=== PATIENT | male | born 1940 | race Caucasian/White ===

== ENCOUNTER 2022-01-21 10:57 | Inpatient (IN) ==
[2022-01-21] MEDS ORDERED: ALBUTEROL 2.5 MG/3 ML NEB RESP TX STA (11:31)
[2022-01-21] MEDS ORDERED: FUROSEMIDE 100 MG/10 ML VIAL IV STA (12:17)
[2022-01-21] MEDS ORDERED: AZITHROMYCIN INJ 500 MG in SODIUM CHLORIDE 0.9% 250 ML IV STA (12:17)
[2022-01-21] MEDS ORDERED: cefTRIAXone 1,000 MG in SODIUM CHLORIDE 0.9% 100 ML IV STA (12:17)
[2022-01-21] MEDS ORDERED: MORPHINE 2 MG/1 ML SYRINGE IV STA (12:18)
[2022-01-21] MEDS ORDERED: ASPIRIN 325 MG TABLET PO STA (12:29)
[2022-01-21] MEDS ORDERED: NITROGLYCERIN SL 0.4 MG TABLET SL ONE (12:35)
[2022-01-21] MEDS ORDERED: HEPARIN 5,000 UNIT/1 ML VIAL ONE (12:43)
[2022-01-21] MEDS ORDERED: HEPARIN 5,000 UNIT/1 ML VIAL IV STA (12:44)
[2022-01-21] MEDS ORDERED: HEPARIN/NACL 0.9% 2 UNITS/ML 2,000 UNIT/1,000 ML BAG IV ONE (12:50)
[2022-01-21] MEDS ORDERED: DOCUSATE SODIUM 100 MG CAPSULE PO PRN (12:57)
[2022-01-21] MEDS ORDERED: MORPHINE 2 MG/1 ML SYRINGE IV PRN (12:57)
[2022-01-21] MEDS ORDERED: diphenhydrAMINE CAP 25 MG CAPSULE PO PRN (12:57)
[2022-01-21] MEDS ORDERED: MAGNESIUM SULF RIDER 4 GM/100 ML PREMIX IV PRN (12:57)
[2022-01-21] MEDS ORDERED: MAGNESIUM SULF RIDER 2 GM/50 ML PREMIX IV PRN (12:57)
[2022-01-21] MEDS ORDERED: guaiFENesin/DM ER 600-30 MG TABLET PO PRN (12:57)
[2022-01-21] MEDS ORDERED: PROMETHAZINE 25 MG TABLET PO PRN (12:57)
[2022-01-21] MEDS ORDERED: ALUMINUM/MAGNES/SIMETH MAX STR 30 ML UDCUP PO PRN (12:57)
[2022-01-21] MEDS ORDERED: ACETAMINOPHEN 325 MG TABLET PO PRN (12:57)
[2022-01-21] MEDS ORDERED: hydrALAZINE 20 MG/1 ML VIAL IV PRN (12:57)
[2022-01-21] MEDS ORDERED: ONDANSETRON 4 MG/2 ML VIAL IV PRN (12:57)
[2022-01-21] MEDS ORDERED: MIDAZOLAM 2 MG/2 ML VIAL ONE (13:01)
[2022-01-21] MEDS ORDERED: fentaNYL 100 MCG/2 ML VIAL ONE (13:01)
[2022-01-21 13:04] LABS: Eosinophils % 0.1 % (0.00-10.9); Hematocrit 21.2 VOL% (42.0-52.0); Immature Granulocytes % 1.3 %; Immature Granulocytes Absolute 0.18 #; Lymphocytes # 0.7 10*3/uL (1.4-4.0); Lymphocytes % 4.7 % (21.2-54.2); Mean Corpuscular Volume 83.8 FL (87-102); Monocytes # 0.6 10*3/uL (0.11-0.8); Monocytes % 4.2 % (1.7-12.7); Neutrophils % 89.7 % (38.7-73.9); Platelet Count 196 T/CUMM (130-400); Red Blood Count 2.53 MC/CUMM (3.8-5.5); Red Cell Distribution Width 17.2 % (9.3-17.3); White Blood Count 13.9 T/CUMM (4-12)
[2022-01-21] MEDS ORDERED: EPTIFIBATIDE 0 MG/0 ML BOTTLE IV ONE (13:11)
[2022-01-21] MEDS ORDERED: EPTIFIBATIDE 20,000 MCG/10 ML VIAL ONE (13:11)
[2022-01-21 13:24] LABS: CKMB % 11.33 %
[2022-01-21 13:26] LABS: Band Neutrophils 1 % (0-10); Lymphocytes 2 % (20-55); Ovalocytes Slight; Platelet Estimate Normal; Total Cells Counted 100
[2022-01-21 13:27] LABS: Alanine Aminotransferase 38 U/L (16-61); Albumin 2.2 G/DL (3.4-5.0); Alkaline Phosphatase 117 U/L (45-117); Aspartate Amino Transferase 86 U/L (0-37); Blood Urea Nitrogen 22 MG/DL (7-18); Calcium 8.9 MG/DL (8.5-10.1); Carbon Dioxide 22 MMOL/L (21-32); Chloride 96 MMOL/L (98-107); Glucose 219 MG/DL (74-106); Osmolality,Calculated 275.4 MOS/KG (273-304); Sodium 133 MMOL/L (136-145); Total Protein 7.2 G/DL (6.4-8.2)
[2022-01-21 13:29] LABS: High Sensitive Troponin I* 8039.3 ng/L (0-78)
[2022-01-21] MEDS ORDERED: EPTIFIBATIDE 75 MG/100 ML BOTTLE IV ONE (13:40)
[2022-01-21] MEDS ORDERED: EPTIFIBATIDE 75 MG/100 ML BOTTLE IV SCH (14:00)
[2022-01-21] MEDS ORDERED: SODIUM CHLORIDE 0.9% 1,000 ML IV SCH (14:00)
[2022-01-21] MEDS ORDERED: MELATONIN 3 MG TABLET PO PRN (14:15)
[2022-01-21] MEDS ORDERED: GLUCAGON 1 MG VIAL IM PRN (14:26)
[2022-01-21] MEDS ORDERED: SODIUM CHLORIDE 0.9% 1,000 ML IV PRN (14:27)
[2022-01-21 14:28] LABS: Eosinophils % 0.1 % (0.00-10.9); Hematocrit 29.1 VOL% (42.0-52.0); Hemoglobin 9.5 GM/DL (14.0-18.0); Immature Granulocytes % 0.9 %; Immature Granulocytes Absolute 0.07 #; Lymphocytes # 0.2 10*3/uL (1.4-4.0); Lymphocytes % 2.4 % (21.2-54.2); Mean Corpuscular HGB Conc 32.6 GM/DL (32-36); Mean Corpuscular Volume 84.6 FL (87-102); Mean Platelet Volume 9.8 FL (9.6-12.0); Monocytes # 0.4 10*3/uL (0.11-0.8); Monocytes % 5.3 % (1.7-12.7); Neutrophils % 91.3 % (38.7-73.9); Platelet Count 135 T/CUMM (130-400); Red Blood Count 3.44 MC/CUMM (3.8-5.5); Red Cell Distribution Width 17.1 % (9.3-17.3)
[2022-01-21] MEDS ORDERED: DEXTROSE 10% 250 ML BAG IV PRN (14:29)
[2022-01-21] MEDS ORDERED: cefTRIAXone 1,000 MG in SODIUM CHLORIDE 0.9% 100 ML IV SCH (14:30)
[2022-01-21] MEDS ORDERED: SODIUM CHLORIDE 0.9% 250 ML IV ONE (14:34)
[2022-01-21 14:51] LABS: White Blood Count 7.9 T/CUMM (4-12)
[2022-01-21] MEDS ORDERED: AZITHROMYCIN INJ 500 MG in SODIUM CHLORIDE 0.9% 250 ML IV ONE (15:00)
[2022-01-21] MEDS ORDERED: AZITHROMYCIN INJ 500 MG in SODIUM CHLORIDE 0.9% 250 ML IV SCH (15:00)
[2022-01-21] MEDS: SODIUM CHLORIDE 0.9% 1,000 ML IV SCH (15:13)
[2022-01-21 15:14] LABS: Platelet Estimate Decreased; Total Cells Counted 100
[2022-01-21 15:19] LABS: Ovalocytes Slight
[2022-01-21] MEDS: DEXAMETHASONE 4 MG/1 ML VIAL IV SCH (15:25)
[2022-01-21] MEDS ORDERED: HEPARIN DRIP 25,000 UNITS/500 ML PREMIX IV SCH (16:00)
[2022-01-21] MEDS: INSULIN LISPRO 100 UNIT/ML SUBCUT SCH ×2 (16:13→21:00)
[2022-01-21 17:05] LABS: CKMB % 12.3 %
[2022-01-21 17:09] LABS: High Sensitive Troponin I* 17648.8 ng/L (0-78)
[2022-01-21 17:34] LABS: Folate 6.24 NG/ML (5.38-24.0)
[2022-01-21 19:48] LABS: Mucus,Urine Occasional /LPF (Occasional); RBC,Urine 2 /HPF (0-4)
[2022-01-21 19:50] LABS: Bilirubin,Urine Negative (Negative); Blood, Urine Negative (Negative); Glucose,Urine (UA) Negative (Negative); Ketones,Urine Negative (Negative); Nitrite,Urine Negative (Negative); Protein,Urine Trace mg/dL (Negative); Urine Appearance Clear (Clear); Urine Color Yellow (Yellow); Urine Urobilinogen 0.2 eU/dL (<2.0)
[2022-01-21] MEDS: ASCORBIC ACID 500 MG TABLET PO SCH (20:49)
[2022-01-21] MEDS: ATORVASTATIN 40 MG TABLET PO SCH (20:49)
[2022-01-21] MEDS: PANTOPRAZOLE 40 MG VIAL IV SCH (20:49)
[2022-01-21 21:03] LABS: Hematocrit 34.2 VOL% (42.0-52.0); Hemoglobin 11.2 GM/DL (14.0-18.0); Immature Granulocytes % 0.8 %; Immature Granulocytes Absolute 0.05 #; Lymphocytes # 0.2 10*3/uL (1.4-4.0); Lymphocytes % 2.3 % (21.2-54.2); Mean Corpuscular HGB Conc 32.7 GM/DL (32-36); Mean Corpuscular Volume 84.9 FL (87-102); Mean Platelet Volume 9.3 FL (9.6-12.0); Monocytes # 0.2 10*3/uL (0.11-0.8); Monocytes % 2.8 % (1.7-12.7); Neutrophils % 94.1 % (38.7-73.9); Platelet Count 140 T/CUMM (130-400); Red Blood Count 4.03 MC/CUMM (3.8-5.5); Red Cell Distribution Width 16.6 % (9.3-17.3); White Blood Count 6.5 T/CUMM (4-12)
[2022-01-21] MEDS: HEPARIN DRIP 25,000 UNITS/500 ML PREMIX IV SCH (21:17)
[2022-01-21 21:21] LABS: INR 1.1; PT Patient Result 11.9 SECS (10.1-12.1); Partial Thromboplastin Time 33.4 SECS (23.7-32.9)
[2022-01-21 21:24] LABS: Band Neutrophils 3 % (0-10); Lymphocytes 1 % (20-55); Total Cells Counted 100
[2022-01-21 21:25] LABS: Burr Cells Slight; Ovalocytes Slight; Platelet Estimate Decreased
[2022-01-21 21:26] LABS: Tear Drop Cells Slight
[2022-01-21 22:10] LABS: CKMB % 12.73 %
[2022-01-21 22:11] LABS: High Sensitive Troponin I* 35970.6 ng/L (0-78)
[2022-01-22] MEDS: SODIUM CHLORIDE 0.9% 1,000 ML IV SCH ×3 (01:11→18:36)
[2022-01-22 05:03] LABS: Hematocrit 33.4 VOL% (42.0-52.0); Hemoglobin 11.1 GM/DL (14.0-18.0); Immature Granulocytes % 0.9 %; Immature Granulocytes Absolute 0.05 #; Lymphocytes # 0.2 10*3/uL (1.4-4.0); Lymphocytes % 3.8 % (21.2-54.2); Mean Corpuscular HGB Conc 33.2 GM/DL (32-36); Mean Corpuscular Volume 84.6 FL (87-102); Mean Platelet Volume 9.7 FL (9.6-12.0); Monocytes # 0.1 10*3/uL (0.11-0.8); Monocytes % 2.4 % (1.7-12.7); Neutrophils % 92.9 % (38.7-73.9); Platelet Count 133 T/CUMM (130-400); Red Blood Count 3.95 MC/CUMM (3.8-5.5); Red Cell Distribution Width 16.6 % (9.3-17.3); White Blood Count 5.7 T/CUMM (4-12)
[2022-01-22 05:15] LABS: INR 1.1; PT Patient Result 11.9 SECS (10.1-12.1)
[2022-01-22 05:27] LABS: Hypochromia Slight; Lymphocytes 3 % (20-55); Platelet Estimate Normal; Total Cells Counted 100
[2022-01-22 05:28] LABS: Microcytosis Slight
[2022-01-22 05:30] LABS: Albumin 1.8 G/DL (3.4-5.0); Bilirubin,Total 0.7 MG/DL (0.20-1.00); Potassium 4.1 MMOL/L (3.5-5.1); Risk Ratio 6.42; Thyroid Stimulating Hormone 1.06 uIU/ml (0.358-3.74); VLDL Cholesterol 23.6 MG/DL
[2022-01-22 05:31] LABS: Calcium 8.1 MG/DL (8.5-10.1); Ferritin 452.3 ng/mL (26-388); Osmolality,Calculated 257.8 MOS/KG (273-304); Potassium 3.6 MMOL/L (3.5-5.1)
[2022-01-22] MEDS ORDERED: PANTOPRAZOLE 40 MG TABLET PO SCH (09:00)
[2022-01-22] MEDS: PANTOPRAZOLE 40 MG VIAL IV SCH ×2 (09:41→20:18)
[2022-01-22] MEDS: ZINC GLUCONATE 50 MG TABLET PO SCH (09:41)
[2022-01-22] MEDS: ASCORBIC ACID 500 MG TABLET PO SCH ×2 (09:41→20:18)
[2022-01-22] MEDS: CHOLECALCIFEROL 1,000 UNIT TABLET PO SCH (09:41)
[2022-01-22] MEDS: ASPIRIN 325 MG TABLET PO SCH (09:41)
[2022-01-22] MEDS: INSULIN LISPRO 100 UNIT/ML SUBCUT SCH ×4 (09:42→20:17)
[2022-01-22] MEDS: DEXAMETHASONE 4 MG/1 ML VIAL IV SCH (09:43)
[2022-01-22] MEDS: AZITHROMYCIN INJ 500 MG in SODIUM CHLORIDE 0.9% 250 ML IV SCH (09:46)
[2022-01-22] MEDS ORDERED: FUROSEMIDE 40 MG/4 ML VIAL IV ONE (11:27)
[2022-01-22] MEDS: cefTRIAXone 1,000 MG in SODIUM CHLORIDE 0.9% 100 ML IV SCH (15:05)
[2022-01-22] MEDS: ATORVASTATIN 40 MG TABLET PO SCH (20:17)
[2022-01-22] MEDS: HEPARIN DRIP 25,000 UNITS/500 ML PREMIX IV SCH ×2 (20:25→20:58)
[2022-01-23 02:38] LABS: Hematocrit 30.6 VOL% (42.0-52.0); Hemoglobin 10.1 GM/DL (14.0-18.0); Immature Granulocytes % 0.8 %; Immature Granulocytes Absolute 0.05 #; Lymphocytes # 0.2 10*3/uL (1.4-4.0); Lymphocytes % 3.3 % (21.2-54.2); Mean Corpuscular Volume 84.5 FL (87-102); Mean Platelet Volume 9.5 FL (9.6-12.0); Monocytes # 0.3 10*3/uL (0.11-0.8); Monocytes % 3.9 % (1.7-12.7); Platelet Count 117 T/CUMM (130-400); Red Blood Count 3.62 MC/CUMM (3.8-5.5); Red Cell Distribution Width 16.7 % (9.3-17.3); White Blood Count 6.6 T/CUMM (4-12)
[2022-01-23 03:02] LABS: Calcium 8.1 MG/DL (8.5-10.1); Osmolality,Calculated 285.1 MOS/KG (273-304); Potassium 3.9 MMOL/L (3.5-5.1)
[2022-01-23 03:07] LABS: Lymphocytes 9 % (20-55); Total Cells Counted 100
[2022-01-23 03:08] LABS: Platelet Estimate Normal
[2022-01-23] MEDS: PANTOPRAZOLE 40 MG VIAL IV SCH ×2 (08:38→21:30)
[2022-01-23] MEDS: INSULIN LISPRO 100 UNIT/ML SUBCUT SCH ×4 (08:40→21:32)
[2022-01-23] MEDS: ASCORBIC ACID 500 MG TABLET PO SCH ×2 (08:40→21:31)
[2022-01-23] MEDS: ZINC GLUCONATE 50 MG TABLET PO SCH (08:40)
[2022-01-23] MEDS: ASPIRIN 325 MG TABLET PO SCH (08:40)
[2022-01-23] MEDS: CHOLECALCIFEROL 1,000 UNIT TABLET PO SCH (08:40)
[2022-01-23] MEDS: DEXAMETHASONE 4 MG/1 ML VIAL IV SCH (08:41)
[2022-01-23] MEDS: AZITHROMYCIN INJ 500 MG in SODIUM CHLORIDE 0.9% 250 ML IV SCH (08:44)
[2022-01-23] MEDS: DAPAGLIFLOZIN 10 MG TABLET PO SCH (08:47)
[2022-01-23] MEDS ORDERED: INSULIN GLARGINE 100 UNIT/ML SUBCUT ONE (08:47)
[2022-01-23] MEDS: INSULIN GLARGINE 100 UNIT/ML SUBCUT SCH (08:49)
[2022-01-23] MEDS ORDERED: FUROSEMIDE 40 MG/4 ML VIAL IV ONE ×2 (09:42→09:45)
[2022-01-23] MEDS ORDERED: OXYMETAZOLINE 0.05% NASAL SPRAY 15 ML BOTTLE BOTH NARES PRN (10:23)
[2022-01-23] MEDS: NEBIVOLOL 5 MG TABLET PO SCH (12:01)
[2022-01-23] MEDS: APIXABAN 5 MG TABLET PO SCH ×2 (12:01→21:30)
[2022-01-23] MEDS: cefTRIAXone 1,000 MG in SODIUM CHLORIDE 0.9% 100 ML IV SCH (12:21)
[2022-01-23] MEDS ORDERED: ALPRAZolam 0.5 MG TABLET PO PRN (16:48)
[2022-01-23] MEDS: ATORVASTATIN 40 MG TABLET PO SCH (21:30)
[2022-01-23] MEDS: ZALEPLON 5 MG CAPSULE PO PRN (21:31)
[2022-01-24 03:50] LABS: Hematocrit 32.2 VOL% (42.0-52.0); Hemoglobin 10.5 GM/DL (14.0-18.0); Immature Granulocytes % 0.8 %; Immature Granulocytes Absolute 0.06 #; Lymphocytes # 0.2 10*3/uL (1.4-4.0); Lymphocytes % 3.2 % (21.2-54.2); Mean Corpuscular HGB Conc 32.6 GM/DL (32-36); Mean Corpuscular Volume 86.3 FL (87-102); Mean Platelet Volume 9.8 FL (9.6-12.0); Monocytes # 0.4 10*3/uL (0.11-0.8); Monocytes % 5.2 % (1.7-12.7); Neutrophils % 90.8 % (38.7-73.9); Platelet Count 158 T/CUMM (130-400); Red Blood Count 3.73 MC/CUMM (3.8-5.5); Red Cell Distribution Width 16.8 % (9.3-17.3); White Blood Count 7.1 T/CUMM (4-12)
[2022-01-24 04:07] LABS: Calcium 8.5 MG/DL (8.5-10.1); Osmolality,Calculated 295.4 MOS/KG (273-304)
[2022-01-24] MEDS ORDERED: FUROSEMIDE 40 MG/4 ML VIAL IV ONE (04:27)
[2022-01-24] MEDS: NEBIVOLOL 5 MG TABLET PO SCH (10:12)
[2022-01-24] MEDS: ASPIRIN 325 MG TABLET PO SCH (10:13)
[2022-01-24] MEDS: ASCORBIC ACID 500 MG TABLET PO SCH ×2 (10:13→21:01)
[2022-01-24] MEDS: ZINC GLUCONATE 50 MG TABLET PO SCH (10:13)
[2022-01-24] MEDS: CHOLECALCIFEROL 1,000 UNIT TABLET PO SCH (10:13)
[2022-01-24] MEDS: APIXABAN 5 MG TABLET PO SCH ×2 (10:14→21:01)
[2022-01-24] MEDS: DAPAGLIFLOZIN 10 MG TABLET PO SCH (10:14)
[2022-01-24] MEDS: INSULIN GLARGINE 100 UNIT/ML SUBCUT SCH (10:14)
[2022-01-24] MEDS: INSULIN LISPRO 100 UNIT/ML SUBCUT SCH ×4 (10:15→21:01)
[2022-01-24] MEDS: PANTOPRAZOLE 40 MG VIAL IV SCH ×2 (10:15→21:05)
[2022-01-24] MEDS: DEXAMETHASONE 4 MG/1 ML VIAL IV SCH (10:18)
[2022-01-24] MEDS: AZITHROMYCIN INJ 500 MG in SODIUM CHLORIDE 0.9% 250 ML IV SCH (10:26)
[2022-01-24] MEDS: cefTRIAXone 1,000 MG in SODIUM CHLORIDE 0.9% 100 ML IV SCH (15:05)
[2022-01-24] MEDS: ATORVASTATIN 40 MG TABLET PO SCH (21:05)
[2022-01-25 04:44] LABS: Basophils % 0.1 % (0.0-0.8); Hematocrit 33.1 VOL% (42.0-52.0); Hemoglobin 10.6 GM/DL (14.0-18.0); Immature Granulocytes % 1.3 %; Immature Granulocytes Absolute 0.11 #; Lymphocytes # 0.4 10*3/uL (1.4-4.0); Lymphocytes % 4.8 % (21.2-54.2); Mean Corpuscular Volume 86.6 FL (87-102); Mean Platelet Volume 10.1 FL (9.6-12.0); Monocytes # 0.5 10*3/uL (0.11-0.8); Monocytes % 5.5 % (1.7-12.7); Neutrophils % 88.3 % (38.7-73.9); Platelet Count 168 T/CUMM (130-400); Red Blood Count 3.82 MC/CUMM (3.8-5.5); White Blood Count 8.4 T/CUMM (4-12)
[2022-01-25 05:03] LABS: Hypochromia Slight; Lymphocytes 2 % (20-55); Microcytosis Slight; Platelet Estimate Adequate; Total Cells Counted 100
[2022-01-25 05:07] LABS: Bilirubin,Total 0.4 MG/DL (0.20-1.00); Calcium 8.8 MG/DL (8.5-10.1); Osmolality,Calculated 294.5 MOS/KG (273-304); Potassium 3.8 MMOL/L (3.5-5.1)
[2022-01-25] MEDS: DEXAMETHASONE 4 MG/1 ML VIAL IV SCH (09:14)
[2022-01-25] MEDS: PANTOPRAZOLE 40 MG VIAL IV SCH ×2 (09:17→21:09)
[2022-01-25] MEDS: CHOLECALCIFEROL 1,000 UNIT TABLET PO SCH (09:19)
[2022-01-25] MEDS: APIXABAN 5 MG TABLET PO SCH ×2 (09:19→21:08)
[2022-01-25] MEDS: NEBIVOLOL 5 MG TABLET PO SCH (09:20)
[2022-01-25] MEDS: ASCORBIC ACID 500 MG TABLET PO SCH ×2 (09:20→21:10)
[2022-01-25] MEDS: ASPIRIN 325 MG TABLET PO SCH (09:21)
[2022-01-25] MEDS: ZINC GLUCONATE 50 MG TABLET PO SCH (09:21)
[2022-01-25] MEDS: DAPAGLIFLOZIN 10 MG TABLET PO SCH (09:21)
[2022-01-25] MEDS: AZITHROMYCIN INJ 500 MG in SODIUM CHLORIDE 0.9% 250 ML IV SCH (09:26)
[2022-01-25] MEDS: INSULIN LISPRO 100 UNIT/ML SUBCUT SCH ×4 (10:49→21:09)
[2022-01-25] MEDS: INSULIN GLARGINE 100 UNIT/ML SUBCUT SCH (12:10)
[2022-01-25] MEDS: cefTRIAXone 1,000 MG in SODIUM CHLORIDE 0.9% 100 ML IV SCH (16:18)
[2022-01-25] MEDS: ATORVASTATIN 40 MG TABLET PO SCH (21:08)
[2022-01-25] MEDS: ZALEPLON 5 MG CAPSULE PO PRN (21:08)
[2022-01-26 04:01] LABS: Arterial Base Excess iSTAT 4 MMOL/L (-2.5-2.5); Arterial Bicarbonate iSTAT 28.1 MMOL/L (20-26); Arterial O2 Saturation iSTAT 90 % (95-100); Arterial PCO2 iSTAT 39 MM HG (35-48); Arterial PO2 iSTAT 56 MM HG (80-95); Arterial Total CO2 iSTAT 29 MMO/L (23-27); Arterial pH iSTAT 7.464 (7.35-7.45)
[2022-01-26 04:12] LABS: Basophils % 0.1 % (0.0-0.8); Eosinophils % 0.3 % (0.00-10.9); Hematocrit 32.3 VOL% (42.0-52.0); Hemoglobin 10.4 GM/DL (14.0-18.0); Immature Granulocytes % 1.9 %; Lymphocytes # 0.5 10*3/uL (1.4-4.0); Lymphocytes % 4.7 % (21.2-54.2); Mean Corpuscular HGB Conc 32.2 GM/DL (32-36); Mean Corpuscular Volume 87.8 FL (87-102); Mean Platelet Volume 9.4 FL (9.6-12.0); Monocytes # 0.6 10*3/uL (0.11-0.8); Monocytes % 5.5 % (1.7-12.7); Neutrophils % 87.5 % (38.7-73.9); Platelet Count 163 T/CUMM (130-400); Red Blood Count 3.68 MC/CUMM (3.8-5.5); Red Cell Distribution Width 16.9 % (9.3-17.3); White Blood Count 10.5 T/CUMM (4-12)
[2022-01-26 04:31] LABS: Band Neutrophils 1 % (0-10); Hypochromia Slight; Lymphocytes 3 % (20-55); Microcytosis Slight; Platelet Estimate Adequate; Total Cells Counted 100
[2022-01-26 04:34] LABS: Albumin 1.8 G/DL (3.4-5.0); Bilirubin,Total 0.5 MG/DL (0.20-1.00); Calcium 8.7 MG/DL (8.5-10.1); Osmolality,Calculated 295.3 MOS/KG (273-304); Phosphorous 3.6 MG/DL (2.5-4.9); Potassium 4.4 MMOL/L (3.5-5.1); Total Protein 5.8 G/DL (6.4-8.2)
[2022-01-26] MEDS: INSULIN LISPRO 100 UNIT/ML SUBCUT SCH ×4 (07:28→20:48)
[2022-01-26] MEDS ORDERED: ALBUMIN 5% 25 GM/500 ML VIAL IV SCH (08:30)
[2022-01-26] MEDS ORDERED: FUROSEMIDE 40 MG/4 ML VIAL IV ONE ×2 (09:00→18:45)
[2022-01-26] MEDS: CHOLECALCIFEROL 1,000 UNIT TABLET PO SCH (09:05)
[2022-01-26] MEDS: ASCORBIC ACID 500 MG TABLET PO SCH ×2 (09:05→20:47)
[2022-01-26] MEDS: NEBIVOLOL 5 MG TABLET PO SCH (09:06)
[2022-01-26] MEDS: APIXABAN 5 MG TABLET PO SCH ×2 (09:06→20:47)
[2022-01-26] MEDS: ASPIRIN 325 MG TABLET PO SCH (09:06)
[2022-01-26] MEDS: DAPAGLIFLOZIN 10 MG TABLET PO SCH (09:06)
[2022-01-26] MEDS: ZINC GLUCONATE 50 MG TABLET PO SCH (09:06)
[2022-01-26] MEDS: DEXAMETHASONE 4 MG/1 ML VIAL IV SCH (09:07)
[2022-01-26] MEDS: INSULIN GLARGINE 100 UNIT/ML SUBCUT SCH (09:08)
[2022-01-26] MEDS: PANTOPRAZOLE 40 MG VIAL IV SCH ×2 (09:09→20:48)
[2022-01-26] MEDS: AZITHROMYCIN INJ 500 MG in SODIUM CHLORIDE 0.9% 250 ML IV SCH (09:12)
[2022-01-26] MEDS: ALBUMIN 25% 25 GM/100 ML VIAL IV SCH ×2 (10:42→17:11)
[2022-01-26] MEDS: cefTRIAXone 1,000 MG in SODIUM CHLORIDE 0.9% 100 ML IV SCH (16:26)
[2022-01-26] MEDS: ATORVASTATIN 40 MG TABLET PO SCH (20:47)
[2022-01-26] MEDS: ZALEPLON 5 MG CAPSULE PO PRN (20:47)
[2022-01-27 03:55] LABS: Basophils % 0.1 % (0.0-0.8); Eosinophils % 0.3 % (0.00-10.9); Hematocrit 32.6 VOL% (42.0-52.0); Hemoglobin 10.4 GM/DL (14.0-18.0); Immature Granulocytes % 2.5 %; Immature Granulocytes Absolute 0.29 #; Lymphocytes # 0.6 10*3/uL (1.4-4.0); Mean Corpuscular HGB Conc 31.9 GM/DL (32-36); Mean Corpuscular Volume 87.2 FL (87-102); Mean Platelet Volume 9.9 FL (9.6-12.0); Monocytes # 0.5 10*3/uL (0.11-0.8); Monocytes % 4.1 % (1.7-12.7); NRBC # 0.02 10*3/uL; Platelet Count 192 T/CUMM (130-400); Red Blood Count 3.74 MC/CUMM (3.8-5.5); White Blood Count 11.5 T/CUMM (4-12)
[2022-01-27 04:00] LABS: Arterial Base Excess iSTAT 9 MMOL/L (-2.5-2.5); Arterial Bicarbonate iSTAT 33.2 MMOL/L (20-26); Arterial O2 Saturation iSTAT 92 % (95-100); Arterial PCO2 iSTAT 43 MM HG (35-48); Arterial PO2 iSTAT 59 MM HG (80-95); Arterial Total CO2 iSTAT 34 MMO/L (23-27); Arterial pH iSTAT 7.496 (7.35-7.45)
[2022-01-27 04:08] LABS: Calcium 9.3 MG/DL (8.5-10.1); Osmolality,Calculated 294.5 MOS/KG (273-304); Phosphorous 4.4 MG/DL (2.5-4.9); Potassium 4.3 MMOL/L (3.5-5.1)
[2022-01-27] MEDS: CHOLECALCIFEROL 1,000 UNIT TABLET PO SCH (09:47)
[2022-01-27] MEDS: ZINC GLUCONATE 50 MG TABLET PO SCH (09:47)
[2022-01-27] MEDS: APIXABAN 5 MG TABLET PO SCH ×2 (09:47→22:45)
[2022-01-27] MEDS: ASPIRIN EC 81 MG TABLET PO SCH (09:47)
[2022-01-27] MEDS: DAPAGLIFLOZIN 10 MG TABLET PO SCH (09:48)
[2022-01-27] MEDS: NEBIVOLOL 5 MG TABLET PO SCH (09:48)
[2022-01-27] MEDS: ASCORBIC ACID 500 MG TABLET PO SCH ×2 (09:48→20:44)
[2022-01-27] MEDS: DEXAMETHASONE 4 MG/1 ML VIAL IV SCH (09:49)
[2022-01-27] MEDS: PANTOPRAZOLE 40 MG VIAL IV SCH ×2 (09:52→20:45)
[2022-01-27] MEDS: INSULIN GLARGINE 100 UNIT/ML SUBCUT SCH (09:53)
[2022-01-27] MEDS: INSULIN LISPRO 100 UNIT/ML SUBCUT SCH ×4 (13:18→20:44)
[2022-01-27] MEDS: cefTRIAXone 1,000 MG in SODIUM CHLORIDE 0.9% 100 ML IV SCH (16:27)
[2022-01-27] MEDS: ATORVASTATIN 40 MG TABLET PO SCH (20:44)
[2022-01-27] MEDS ORDERED: OLANZapine 5 MG TABLET PO SCH (21:00)
[2022-01-28 04:18] LABS: Arterial Base Excess iSTAT 2 MMOL/L (-2.5-2.5); Arterial Bicarbonate iSTAT 26.8 MMOL/L (20-26); Arterial O2 Saturation iSTAT 96 % (95-100); Arterial PCO2 iSTAT 44 MM HG (35-48); Arterial PO2 iSTAT 84 MM HG (80-95); Arterial Total CO2 iSTAT 28 MMO/L (23-27); Arterial pH iSTAT 7.397 (7.35-7.45)
[2022-01-28 05:08] LABS: Basophils % 0.2 % (0.0-0.8); Eosinophils % 0.4 % (0.00-10.9); Hemoglobin 10.6 GM/DL (14.0-18.0); Immature Granulocytes % 4.5 %; Immature Granulocytes Absolute 0.46 #; Lymphocytes # 0.4 10*3/uL (1.4-4.0); Lymphocytes % 4.3 % (21.2-54.2); Mean Corpuscular HGB Conc 31.2 GM/DL (32-36); Mean Corpuscular Volume 89.7 FL (87-102); Mean Platelet Volume 10.3 FL (9.6-12.0); Monocytes # 0.5 10*3/uL (0.11-0.8); Monocytes % 4.5 % (1.7-12.7); NRBC # 0.02 10*3/uL; Neutrophils % 86.1 % (38.7-73.9); Platelet Count 200 T/CUMM (130-400); Red Blood Count 3.79 MC/CUMM (3.8-5.5); Red Cell Distribution Width 17.2 % (9.3-17.3); White Blood Count 10.1 T/CUMM (4-12)
[2022-01-28 05:25] LABS: Calcium 9.3 MG/DL (8.5-10.1); Osmolality,Calculated 300.4 MOS/KG (273-304); Potassium 4.8 MMOL/L (3.5-5.1)
[2022-01-28 06:41] LABS: Band Neutrophils 2 % (0-10); Hypochromia Slight; Lymphocytes 3 % (20-55); Microcytosis 1+; Myelocytes 2 %; Ovalocytes Few; Total Cells Counted 100
[2022-01-28 06:42] LABS: Platelet Estimate Normal
[2022-01-28] MEDS: DEXAMETHASONE 4 MG/1 ML VIAL IV SCH (08:16)
[2022-01-28] MEDS: INSULIN GLARGINE 100 UNIT/ML SUBCUT SCH (08:16)
[2022-01-28] MEDS: INSULIN LISPRO 100 UNIT/ML SUBCUT SCH ×4 (08:17→20:16)
[2022-01-28] MEDS: PANTOPRAZOLE 40 MG VIAL IV SCH ×2 (08:18→20:17)
[2022-01-28] MEDS: CHOLECALCIFEROL 1,000 UNIT TABLET PO SCH (08:18)
[2022-01-28] MEDS: DAPAGLIFLOZIN 10 MG TABLET PO SCH (08:18)
[2022-01-28] MEDS: NEBIVOLOL 5 MG TABLET PO SCH (08:19)
[2022-01-28] MEDS: ZINC GLUCONATE 50 MG TABLET PO SCH (08:19)
[2022-01-28] MEDS: ASCORBIC ACID 500 MG TABLET PO SCH ×2 (08:20→20:15)
[2022-01-28] MEDS: ASPIRIN EC 81 MG TABLET PO SCH (08:20)
[2022-01-28] MEDS: APIXABAN 5 MG TABLET PO SCH ×2 (08:20→20:15)
[2022-01-28 08:53] LABS: Mucus,Urine Occasional /LPF (Occasional); Protein,Urine Negative (Negative); RBC,Urine 22 /HPF (0-4); Squamous Epithelial Cell,Urine Occasional /HPF (0-10); Urine Appearance Clear (Clear); Urine Color Yellow (Yellow); Urine Specific Gravity 1.015 (1.001-1.035); Urine pH 7.5 (4.5-8.0)
[2022-01-28 08:54] LABS: Glucose,Urine (UA) >=1000 mg/dL (Negative)
[2022-01-28 08:55] LABS: Ketones,Urine Negative (Negative); Nitrite,Urine Negative (Negative)
[2022-01-28 08:59] LABS: Bilirubin,Urine Negative (Negative)
[2022-01-28 09:00] LABS: Blood, Urine Small mg/dL (Negative); Urine Urobilinogen 0.2 eU/dL (<2.0)
[2022-01-28] MEDS: cefTRIAXone 1,000 MG in SODIUM CHLORIDE 0.9% 100 ML IV SCH (15:05)
[2022-01-28] MEDS: ATORVASTATIN 40 MG TABLET PO SCH (20:15)
[2022-01-28] MEDS ORDERED: OLANZapine 5 MG TABLET PO SCH (21:00)
[2022-01-29 04:11] LABS: Basophils % 0.1 % (0.0-0.8); Eosinophils % 0.4 % (0.00-10.9); Hematocrit 34.5 VOL% (42.0-52.0); Hemoglobin 10.6 GM/DL (14.0-18.0); Immature Granulocytes % 3.5 %; Immature Granulocytes Absolute 0.32 #; Lymphocytes # 0.5 10*3/uL (1.4-4.0); Lymphocytes % 5.2 % (21.2-54.2); Mean Corpuscular HGB Conc 30.7 GM/DL (32-36); Mean Corpuscular Volume 90.8 FL (87-102); Mean Platelet Volume 10.2 FL (9.6-12.0); Monocytes # 0.5 10*3/uL (0.11-0.8); Monocytes % 5.6 % (1.7-12.7); NRBC # 0.02 10*3/uL; Neutrophils % 85.2 % (38.7-73.9); Platelet Count 214 T/CUMM (130-400); Red Cell Distribution Width 17.2 % (9.3-17.3); White Blood Count 9.2 T/CUMM (4-12)
[2022-01-29 04:23] LABS: Arterial Base Excess iSTAT 1 MMOL/L (-2.5-2.5); Arterial Bicarbonate iSTAT 25.5 MMOL/L (20-26); Arterial O2 Saturation iSTAT 83 % (95-100); Arterial PCO2 iSTAT 40 MM HG (35-48); Arterial PO2 iSTAT 47 MM HG (80-95); Arterial Total CO2 iSTAT 27 MMO/L (23-27); Arterial pH iSTAT 7.408 (7.35-7.45)
[2022-01-29 04:28] LABS: Calcium 9.4 MG/DL (8.5-10.1); Potassium 4.8 MMOL/L (3.5-5.1)
[2022-01-29 05:23] LABS: Arterial Base Excess iSTAT 1 MMOL/L (-2.5-2.5); Arterial Bicarbonate iSTAT 26.1 MMOL/L (20-26); Arterial O2 Saturation iSTAT 94 % (95-100); Arterial PCO2 iSTAT 42 MM HG (35-48); Arterial PO2 iSTAT 71 MM HG (80-95); Arterial Total CO2 iSTAT 27 MMO/L (23-27); Arterial pH iSTAT 7.399 (7.35-7.45)
[2022-01-29] MEDS: INSULIN LISPRO 100 UNIT/ML SUBCUT SCH ×4 (08:16→21:07)
[2022-01-29] MEDS: DEXAMETHASONE 4 MG/1 ML VIAL IV SCH (08:16)
[2022-01-29] MEDS: INSULIN GLARGINE 100 UNIT/ML SUBCUT SCH (08:16)
[2022-01-29] MEDS: NEBIVOLOL 5 MG TABLET PO SCH (08:17)
[2022-01-29] MEDS: ASPIRIN EC 81 MG TABLET PO SCH (08:17)
[2022-01-29] MEDS: PANTOPRAZOLE 40 MG VIAL IV SCH ×2 (08:17→20:55)
[2022-01-29] MEDS: CHOLECALCIFEROL 1,000 UNIT TABLET PO SCH (08:17)
[2022-01-29] MEDS: APIXABAN 5 MG TABLET PO SCH (08:17)
[2022-01-29] MEDS: DAPAGLIFLOZIN 10 MG TABLET PO SCH (08:17)
[2022-01-29] MEDS: ZINC GLUCONATE 50 MG TABLET PO SCH (08:17)
[2022-01-29] MEDS: ASCORBIC ACID 500 MG TABLET PO SCH ×2 (08:18→21:06)
[2022-01-29] MEDS ORDERED: OLANZapine 5 MG TABLET PO PRN (15:01)
[2022-01-29] MEDS: cefTRIAXone 1,000 MG in SODIUM CHLORIDE 0.9% 100 ML IV SCH (15:38)
[2022-01-29] MEDS ORDERED: ACYCLOVIR 200 MG CAPSULE PO PRN (18:27)
[2022-01-29] MEDS: ATORVASTATIN 40 MG TABLET PO SCH (21:06)
[2022-01-29] MEDS: APIXABAN 2.5 MG TABLET PO SCH (21:06)
[2022-01-29] MEDS: TAMSULOSIN 0.4 MG CAPSULE PO SCH (21:06)
[2022-01-30 04:20] LABS: ABG Base Excess 2.7 MMOL/L (-2.5-2.5); ABG HCO3 26.7 MMOL/L (20-26); ABG Oxygen Saturation 93.1 % (95-100); ABG PCO2 40.2 MM HG (35-48); ABG PH 7.436 (7.35-7.45); ABG PO2 71.3 MM HG (80-95); Allen Test Positive; Pt O2 Delivery Device Other
[2022-01-30 05:47] LABS: Basophils % 0.1 % (0.0-0.8); Eosinophils # 0.1 10*3/uL (0.0-0.87); Eosinophils % 0.8 % (0.00-10.9); Hematocrit 35.4 VOL% (42.0-52.0); Hemoglobin 11.1 GM/DL (14.0-18.0); Immature Granulocytes Absolute 0.29 #; Lymphocytes # 0.6 10*3/uL (1.4-4.0); Lymphocytes % 8.6 % (21.2-54.2); Mean Corpuscular HGB Conc 31.4 GM/DL (32-36); Mean Corpuscular Volume 89.2 FL (87-102); Mean Platelet Volume 10.5 FL (9.6-12.0); Monocytes # 0.6 10*3/uL (0.11-0.8); Monocytes % 7.6 % (1.7-12.7); NRBC # 0.03 10*3/uL; Neutrophils % 78.9 % (38.7-73.9); Platelet Count 220 T/CUMM (130-400); Red Blood Count 3.97 MC/CUMM (3.8-5.5); Red Cell Distribution Width 17.5 % (9.3-17.3); White Blood Count 7.3 T/CUMM (4-12)
[2022-01-30 06:02] LABS: Calcium 9.6 MG/DL (8.5-10.1); Osmolality,Calculated 294.5 MOS/KG (273-304); Potassium 4.7 MMOL/L (3.5-5.1)
[2022-01-30] MEDS: INSULIN LISPRO 100 UNIT/ML SUBCUT SCH ×4 (08:44→20:20)
[2022-01-30] MEDS: POLYETHYLENE GLYCOL POWDER 17 GM PACK PO SCH (08:58)
[2022-01-30] MEDS: ASCORBIC ACID 500 MG TABLET PO SCH ×2 (08:59→20:20)
[2022-01-30] MEDS: DAPAGLIFLOZIN 10 MG TABLET PO SCH (08:59)
[2022-01-30] MEDS: ATORVASTATIN 40 MG TABLET PO SCH ×2 (08:59→20:20)
[2022-01-30] MEDS: ZINC GLUCONATE 50 MG TABLET PO SCH (08:59)
[2022-01-30] MEDS: ASPIRIN EC 81 MG TABLET PO SCH (08:59)
[2022-01-30] MEDS: NEBIVOLOL 5 MG TABLET PO SCH (08:59)
[2022-01-30] MEDS: APIXABAN 2.5 MG TABLET PO SCH ×2 (09:00→20:20)
[2022-01-30] MEDS: DEXAMETHASONE 4 MG/1 ML VIAL IV SCH (09:00)
[2022-01-30] MEDS: CHOLECALCIFEROL 1,000 UNIT TABLET PO SCH (09:00)
[2022-01-30] MEDS: PANTOPRAZOLE 40 MG VIAL IV SCH ×2 (09:01→20:27)
[2022-01-30] MEDS: INSULIN GLARGINE 100 UNIT/ML SUBCUT SCH (09:01)
[2022-01-30] MEDS: TAMSULOSIN 0.4 MG CAPSULE PO SCH (20:20)
[2022-01-31 05:25] LABS: Basophils % 0.1 % (0.0-0.8); Eosinophils # 0.1 10*3/uL (0.0-0.87); Eosinophils % 0.6 % (0.00-10.9); Hematocrit 33.5 VOL% (42.0-52.0); Hemoglobin 10.6 GM/DL (14.0-18.0); Immature Granulocytes % 6.5 %; Lymphocytes # 0.7 10*3/uL (1.4-4.0); Lymphocytes % 8.5 % (21.2-54.2); Mean Corpuscular HGB Conc 31.6 GM/DL (32-36); Mean Corpuscular Volume 88.2 FL (87-102); Mean Platelet Volume 10.9 FL (9.6-12.0); Monocytes # 0.6 10*3/uL (0.11-0.8); Monocytes % 7.5 % (1.7-12.7); NRBC # 0.04 10*3/uL; Neutrophils % 76.8 % (38.7-73.9); Platelet Count 238 T/CUMM (130-400); Red Cell Distribution Width 17.2 % (9.3-17.3); White Blood Count 7.7 T/CUMM (4-12)
[2022-01-31 05:39] LABS: Calcium 9.5 MG/DL (8.5-10.1); Osmolality,Calculated 294.5 MOS/KG (273-304); Potassium 4.4 MMOL/L (3.5-5.1)
[2022-01-31 05:45] LABS: Band Neutrophils 1 % (0-10); Hypochromia Slight; Lymphocytes 7 % (20-55); Microcytosis Slight; Platelet Estimate Adequate; Total Cells Counted 100
[2022-01-31] MEDS: INSULIN LISPRO 100 UNIT/ML SUBCUT SCH ×4 (08:10→21:41)
[2022-01-31] MEDS: NEBIVOLOL 5 MG TABLET PO SCH (09:20)
[2022-01-31] MEDS: POLYETHYLENE GLYCOL POWDER 17 GM PACK PO SCH (09:20)
[2022-01-31] MEDS: ATORVASTATIN 40 MG TABLET PO SCH ×2 (09:20→21:40)
[2022-01-31] MEDS: APIXABAN 2.5 MG TABLET PO SCH ×2 (09:20→21:41)
[2022-01-31] MEDS: DAPAGLIFLOZIN 10 MG TABLET PO SCH (09:20)
[2022-01-31] MEDS: PANTOPRAZOLE 40 MG VIAL IV SCH ×2 (09:20→22:16)
[2022-01-31] MEDS: CHOLECALCIFEROL 1,000 UNIT TABLET PO SCH (09:20)
[2022-01-31] MEDS: ASCORBIC ACID 500 MG TABLET PO SCH ×2 (09:20→21:41)
[2022-01-31] MEDS: ASPIRIN EC 81 MG TABLET PO SCH (09:20)
[2022-01-31] MEDS: ZINC GLUCONATE 50 MG TABLET PO SCH (09:20)
[2022-01-31] MEDS: INSULIN GLARGINE 100 UNIT/ML SUBCUT SCH (09:21)
[2022-01-31] MEDS: TAMSULOSIN 0.4 MG CAPSULE PO SCH (21:41)
[2022-02-01 06:30] LABS: Basophils % 0.2 % (0.0-0.8); Eosinophils # 0.2 10*3/uL (0.0-0.87); Eosinophils % 2.2 % (0.00-10.9); Hematocrit 38.2 VOL% (42.0-52.0); Immature Granulocytes % 4.8 %; Immature Granulocytes Absolute 0.49 #; Lymphocytes # 1.3 10*3/uL (1.4-4.0); Mean Corpuscular HGB Conc 31.4 GM/DL (32-36); Mean Corpuscular Volume 88.2 FL (87-102); Mean Platelet Volume 11.8 FL (9.6-12.0); Monocytes # 0.8 10*3/uL (0.11-0.8); Monocytes % 7.8 % (1.7-12.7); NRBC # 0.05 10*3/uL; Platelet Count 212 T/CUMM (130-400); Red Blood Count 4.33 MC/CUMM (3.8-5.5); Red Cell Distribution Width 17.8 % (9.3-17.3); White Blood Count 10.3 T/CUMM (4-12)
[2022-02-01 06:34] LABS: Calcium 9.2 MG/DL (8.5-10.1); Potassium 4.6 MMOL/L (3.5-5.1)
[2022-02-01] MEDS: LACTULOSE 20 GM/30 ML UDCUP PO PRN (09:14)
[2022-02-01] MEDS: NEBIVOLOL 5 MG TABLET PO SCH (09:15)
[2022-02-01] MEDS: CHOLECALCIFEROL 1,000 UNIT TABLET PO SCH (09:15)
[2022-02-01] MEDS: ASCORBIC ACID 500 MG TABLET PO SCH ×2 (09:15→21:12)
[2022-02-01] MEDS: ASPIRIN EC 81 MG TABLET PO SCH (09:15)
[2022-02-01] MEDS: DAPAGLIFLOZIN 10 MG TABLET PO SCH (09:15)
[2022-02-01] MEDS: APIXABAN 2.5 MG TABLET PO SCH ×2 (09:15→21:11)
[2022-02-01] MEDS: ATORVASTATIN 40 MG TABLET PO SCH ×2 (09:15→21:12)
[2022-02-01] MEDS: ZINC GLUCONATE 50 MG TABLET PO SCH (09:15)
[2022-02-01] MEDS: POLYETHYLENE GLYCOL POWDER 17 GM PACK PO SCH (09:16)
[2022-02-01] MEDS: INSULIN LISPRO 100 UNIT/ML SUBCUT SCH ×4 (09:16→21:45)
[2022-02-01] MEDS: PANTOPRAZOLE 40 MG VIAL IV SCH ×2 (09:16→22:33)
[2022-02-01] MEDS: INSULIN GLARGINE 100 UNIT/ML SUBCUT SCH (09:17)
[2022-02-01] MEDS ORDERED: SODIUM PHOSPHATE ENEMA 133 ML BOTTLE RECTAL ONE (13:47)
[2022-02-01] MEDS: TAMSULOSIN 0.4 MG CAPSULE PO SCH (21:11)
[2022-02-02] MEDS ORDERED: POLYETHYLENE GLYCOL POWDER 17 GM PACK PO PRN (02:18)
[2022-02-02 05:11] LABS: Basophils % 0.2 % (0.0-0.8); Eosinophils # 0.2 10*3/uL (0.0-0.87); Eosinophils % 1.9 % (0.00-10.9); Hematocrit 34.6 VOL% (42.0-52.0); Hemoglobin 10.8 GM/DL (14.0-18.0); Immature Granulocytes % 3.8 %; Immature Granulocytes Absolute 0.33 #; Lymphocytes # 0.7 10*3/uL (1.4-4.0); Lymphocytes % 8.5 % (21.2-54.2); Mean Corpuscular HGB Conc 31.2 GM/DL (32-36); Mean Corpuscular Volume 88.5 FL (87-102); Mean Platelet Volume 10.9 FL (9.6-12.0); Monocytes # 0.6 10*3/uL (0.11-0.8); NRBC # 0.03 10*3/uL; Neutrophils % 78.6 % (38.7-73.9); Platelet Count 247 T/CUMM (130-400); Red Blood Count 3.91 MC/CUMM (3.8-5.5); Red Cell Distribution Width 17.9 % (9.3-17.3); White Blood Count 8.6 T/CUMM (4-12)
[2022-02-02 05:28] LABS: Calcium 8.5 MG/DL (8.5-10.1); Osmolality,Calculated 295.1 MOS/KG (273-304)
[2022-02-02] MEDS: INSULIN LISPRO 100 UNIT/ML SUBCUT SCH ×4 (08:57→22:14)
[2022-02-02] MEDS: LACTULOSE 20 GM/30 ML UDCUP PO PRN ×2 (10:20→16:05)
[2022-02-02] MEDS: DAPAGLIFLOZIN 10 MG TABLET PO SCH (12:26)
[2022-02-02] MEDS: NEBIVOLOL 5 MG TABLET PO SCH (12:26)
[2022-02-02] MEDS: APIXABAN 2.5 MG TABLET PO SCH ×2 (12:26→22:15)
[2022-02-02] MEDS: ASPIRIN EC 81 MG TABLET PO SCH (12:26)
[2022-02-02] MEDS: POLYETHYLENE GLYCOL POWDER 17 GM PACK PO SCH (12:27)
[2022-02-02] MEDS: ASCORBIC ACID 500 MG TABLET PO SCH ×2 (12:27→22:15)
[2022-02-02] MEDS: ATORVASTATIN 40 MG TABLET PO SCH (12:27)
[2022-02-02] MEDS: INSULIN GLARGINE 100 UNIT/ML SUBCUT SCH (12:27)
[2022-02-02] MEDS: CHOLECALCIFEROL 1,000 UNIT TABLET PO SCH (12:27)
[2022-02-02] MEDS: PANTOPRAZOLE 40 MG VIAL IV SCH ×2 (12:27→22:27)
[2022-02-02] MEDS: ZINC GLUCONATE 50 MG TABLET PO SCH (12:27)
[2022-02-02] MEDS: TAMSULOSIN 0.4 MG CAPSULE PO SCH (22:15)
[2022-02-03 05:51] LABS: Basophils % 0.1 % (0.0-0.8); Eosinophils # 0.2 10*3/uL (0.0-0.87); Eosinophils % 1.7 % (0.00-10.9); Hematocrit 33.8 VOL% (42.0-52.0); Hemoglobin 10.7 GM/DL (14.0-18.0); Immature Granulocytes Absolute 0.27 #; Lymphocytes # 0.9 10*3/uL (1.4-4.0); Lymphocytes % 9.8 % (21.2-54.2); Mean Corpuscular HGB Conc 31.7 GM/DL (32-36); Mean Corpuscular Volume 89.4 FL (87-102); Mean Platelet Volume 10.8 FL (9.6-12.0); Monocytes # 0.5 10*3/uL (0.11-0.8); NRBC # 0.02 10*3/uL; Neutrophils % 80.4 % (38.7-73.9); Platelet Count 247 T/CUMM (130-400); Red Blood Count 3.78 MC/CUMM (3.8-5.5)
[2022-02-03 06:05] LABS: Calcium 8.8 MG/DL (8.5-10.1); Osmolality,Calculated 287.8 MOS/KG (273-304); Potassium 4.5 MMOL/L (3.5-5.1)
[2022-02-03] MEDS: INSULIN GLARGINE 100 UNIT/ML SUBCUT SCH (09:34)
[2022-02-03] MEDS: INSULIN LISPRO 100 UNIT/ML SUBCUT SCH ×4 (09:34→21:42)
[2022-02-03] MEDS: ZINC GLUCONATE 50 MG TABLET PO SCH (09:35)
[2022-02-03] MEDS: NEBIVOLOL 5 MG TABLET PO SCH (09:35)
[2022-02-03] MEDS: POLYETHYLENE GLYCOL POWDER 17 GM PACK PO SCH (09:35)
[2022-02-03] MEDS: ASPIRIN EC 81 MG TABLET PO SCH (09:36)
[2022-02-03] MEDS: CHOLECALCIFEROL 1,000 UNIT TABLET PO SCH (09:36)
[2022-02-03] MEDS: ASCORBIC ACID 500 MG TABLET PO SCH ×2 (09:36→21:41)
[2022-02-03] MEDS: APIXABAN 2.5 MG TABLET PO SCH ×2 (09:36→21:42)
[2022-02-03] MEDS: DAPAGLIFLOZIN 10 MG TABLET PO SCH (09:36)
[2022-02-03] MEDS: ATORVASTATIN 40 MG TABLET PO SCH (09:36)
[2022-02-03] MEDS: PANTOPRAZOLE 40 MG VIAL IV SCH ×2 (09:37→23:02)
[2022-02-03] MEDS: LACTULOSE 20 GM/30 ML UDCUP PO PRN (16:59)
[2022-02-03] MEDS: TAMSULOSIN 0.4 MG CAPSULE PO SCH (21:41)
[2022-02-03] MEDS ORDERED: HYDROmorphone 1 MG/1 ML SYRINGE IV PRN (23:16)
[2022-02-04 00:23] LABS: Albumin 2.5 G/DL (3.4-5.0); Bilirubin,Total 0.9 MG/DL (0.20-1.00); Calcium 8.8 MG/DL (8.5-10.1); Potassium 4.9 MMOL/L (3.5-5.1); Total Protein 6.8 G/DL (6.4-8.2)
[2022-02-04 00:36] LABS: Basophils % 0.1 % (0.0-0.8); Eosinophils # 0.1 10*3/uL (0.0-0.87); Eosinophils % 0.5 % (0.00-10.9); Hematocrit 34.8 VOL% (42.0-52.0); Hemoglobin 11.1 GM/DL (14.0-18.0); Immature Granulocytes % 1.9 %; Immature Granulocytes Absolute 0.27 #; Lymphocytes # 0.8 10*3/uL (1.4-4.0); Lymphocytes % 5.5 % (21.2-54.2); Mean Corpuscular HGB Conc 31.9 GM/DL (32-36); Mean Corpuscular Volume 88.1 FL (87-102); Mean Platelet Volume 10.8 FL (9.6-12.0); Monocytes # 0.9 10*3/uL (0.11-0.8); Monocytes % 6.4 % (1.7-12.7); NRBC # 0.03 10*3/uL; Neutrophils % 85.6 % (38.7-73.9); Platelet Count 320 T/CUMM (130-400); Red Blood Count 3.95 MC/CUMM (3.8-5.5); Red Cell Distribution Width 18.3 % (9.3-17.3); White Blood Count 13.9 T/CUMM (4-12)
[2022-02-04 05:25] LABS: Basophils % 0.1 % (0.0-0.8); Eosinophils # 0.1 10*3/uL (0.0-0.87); Eosinophils % 0.9 % (0.00-10.9); Hematocrit 33.7 VOL% (42.0-52.0); Hemoglobin 10.6 GM/DL (14.0-18.0); Immature Granulocytes % 1.9 %; Lymphocytes # 0.9 10*3/uL (1.4-4.0); Mean Corpuscular HGB Conc 31.5 GM/DL (32-36); Mean Corpuscular Volume 89.6 FL (87-102); Mean Platelet Volume 10.7 FL (9.6-12.0); Monocytes # 0.6 10*3/uL (0.11-0.8); Monocytes % 6.2 % (1.7-12.7); NRBC # 0.03 10*3/uL; Neutrophils % 81.9 % (38.7-73.9); Platelet Count 250 T/CUMM (130-400); Red Blood Count 3.76 MC/CUMM (3.8-5.5); Red Cell Distribution Width 18.5 % (9.3-17.3); White Blood Count 10.3 T/CUMM (4-12)
[2022-02-04 05:45] LABS: Calcium 8.9 MG/DL (8.5-10.1); Osmolality,Calculated 286.1 MOS/KG (273-304); Potassium 4.8 MMOL/L (3.5-5.1)
[2022-02-04] MEDS: INSULIN LISPRO 100 UNIT/ML SUBCUT SCH ×4 (08:58→21:33)
[2022-02-04] MEDS: POLYETHYLENE GLYCOL POWDER 17 GM PACK PO SCH (09:29)
[2022-02-04] MEDS: ZINC GLUCONATE 50 MG TABLET PO SCH (09:29)
[2022-02-04] MEDS: ATORVASTATIN 40 MG TABLET PO SCH (09:29)
[2022-02-04] MEDS: CHOLECALCIFEROL 1,000 UNIT TABLET PO SCH (09:29)
[2022-02-04] MEDS: DAPAGLIFLOZIN 10 MG TABLET PO SCH (09:29)
[2022-02-04] MEDS: NEBIVOLOL 5 MG TABLET PO SCH (09:29)
[2022-02-04] MEDS: ASCORBIC ACID 500 MG TABLET PO SCH ×2 (09:29→21:32)
[2022-02-04] MEDS: ASPIRIN EC 81 MG TABLET PO SCH (09:29)
[2022-02-04] MEDS: PANTOPRAZOLE 40 MG VIAL IV SCH ×2 (09:30→20:01)
[2022-02-04] MEDS: APIXABAN 2.5 MG TABLET PO SCH (09:30)
[2022-02-04] MEDS: INSULIN GLARGINE 100 UNIT/ML SUBCUT SCH (10:00)
[2022-02-04] MEDS: LACTULOSE 20 GM/30 ML UDCUP PO PRN (11:05)
[2022-02-04] MEDS ORDERED: BISACODYL 5 MG TABLET PO ONE (14:18)
[2022-02-04] MEDS: cefTRIAXone 1,000 MG in SODIUM CHLORIDE 0.9% 100 ML IV SCH (21:31)
[2022-02-04] MEDS: LACTULOSE 20 GM/30 ML UDCUP PO SCH (21:32)
[2022-02-04] MEDS: TAMSULOSIN 0.4 MG CAPSULE PO SCH (21:32)
[2022-02-04 23:22] LABS: Bacteria,Urine Occasional /HPF (Few); Glucose,Urine (UA) 500 mg/dL (Negative); Ketones,Urine Trace mg/dL (Negative); Mucus,Urine Occasional /LPF (Occasional); Nitrite,Urine Negative (Negative); Protein,Urine Negative (Negative); RBC,Urine 29 /HPF (0-4); Urine Appearance Clear (Clear); Urine Color Yellow (Yellow); Urine pH 5.5 (4.5-8.0)
[2022-02-04 23:23] LABS: Bilirubin,Urine Negative (Negative); Blood, Urine Trace mg/dL (Negative); Urine Urobilinogen 0.2 eU/dL (<2.0)
[2022-02-05 05:17] LABS: Basophils % 0.1 % (0.0-0.8); Eosinophils # 0.2 10*3/uL (0.0-0.87); Eosinophils % 2.6 % (0.00-10.9); Hematocrit 33.2 VOL% (42.0-52.0); Hemoglobin 10.2 GM/DL (14.0-18.0); Immature Granulocytes % 1.4 %; Lymphocytes # 0.7 10*3/uL (1.4-4.0); Lymphocytes % 9.6 % (21.2-54.2); Mean Corpuscular HGB Conc 30.7 GM/DL (32-36); Mean Corpuscular Volume 91.5 FL (87-102); Mean Platelet Volume 10.6 FL (9.6-12.0); Monocytes # 0.5 10*3/uL (0.11-0.8); Monocytes % 6.7 % (1.7-12.7); NRBC # 0.02 10*3/uL; Neutrophils % 79.6 % (38.7-73.9); Platelet Count 219 T/CUMM (130-400); Red Blood Count 3.63 MC/CUMM (3.8-5.5); Red Cell Distribution Width 18.8 % (9.3-17.3); White Blood Count 7.3 T/CUMM (4-12)
[2022-02-05 05:35] LABS: Calcium 8.4 MG/DL (8.5-10.1); Osmolality,Calculated 283.7 MOS/KG (273-304); Potassium 4.8 MMOL/L (3.5-5.1)
[2022-02-05] MEDS: INSULIN LISPRO 100 UNIT/ML SUBCUT SCH ×4 (08:03→22:12)
[2022-02-05] MEDS ORDERED: GLUCAGON 1 MG VIAL IM PRN (08:44)
[2022-02-05] MEDS ORDERED: DEXTROSE 10% 250 ML BAG IV PRN (08:44)
[2022-02-05] MEDS: POLYETHYLENE GLYCOL POWDER 17 GM PACK PO SCH (09:36)
[2022-02-05] MEDS: LACTULOSE 20 GM/30 ML UDCUP PO SCH ×2 (09:36→22:12)
[2022-02-05] MEDS: ASCORBIC ACID 500 MG TABLET PO SCH ×2 (09:37→22:13)
[2022-02-05] MEDS: NEBIVOLOL 5 MG TABLET PO SCH (09:37)
[2022-02-05] MEDS: DAPAGLIFLOZIN 10 MG TABLET PO SCH (09:37)
[2022-02-05] MEDS: CHOLECALCIFEROL 1,000 UNIT TABLET PO SCH (09:37)
[2022-02-05] MEDS: ATORVASTATIN 40 MG TABLET PO SCH (09:37)
[2022-02-05] MEDS: ZINC GLUCONATE 50 MG TABLET PO SCH (09:37)
[2022-02-05] MEDS: INSULIN GLARGINE 100 UNIT/ML SUBCUT SCH (09:40)
[2022-02-05] MEDS: PANTOPRAZOLE 40 MG VIAL IV SCH ×2 (09:41→22:13)
[2022-02-05] MEDS: ENOXAPARIN 60 MG/0.6 ML SYRINGE SUBCUT SCH (09:49)
[2022-02-05] MEDS ORDERED: ZINC OXIDE PASTE 113 GM TUBE TOP PRN (11:57)
[2022-02-05] MEDS: TAMSULOSIN 0.4 MG CAPSULE PO SCH (22:12)
[2022-02-06] MEDS: PANTOPRAZOLE 40 MG VIAL IV SCH ×3 (00:10→20:24)
[2022-02-06] MEDS: cefTRIAXone 1,000 MG in SODIUM CHLORIDE 0.9% 100 ML IV SCH ×2 (00:15→20:22)
[2022-02-06 05:03] LABS: Basophils % 0.1 % (0.0-0.8); Eosinophils # 0.1 10*3/uL (0.0-0.87); Eosinophils % 2.1 % (0.00-10.9); Hematocrit 30.5 VOL% (42.0-52.0); Hemoglobin 9.6 GM/DL (14.0-18.0); Immature Granulocytes % 1.3 %; Immature Granulocytes Absolute 0.09 #; Lymphocytes # 0.8 10*3/uL (1.4-4.0); Lymphocytes % 12.1 % (21.2-54.2); Mean Corpuscular HGB Conc 31.5 GM/DL (32-36); Mean Corpuscular Volume 90.5 FL (87-102); Mean Platelet Volume 10.8 FL (9.6-12.0); Monocytes # 0.5 10*3/uL (0.11-0.8); Monocytes % 7.2 % (1.7-12.7); Neutrophils % 77.2 % (38.7-73.9); Platelet Count 210 T/CUMM (130-400); Red Blood Count 3.37 MC/CUMM (3.8-5.5); Red Cell Distribution Width 19.2 % (9.3-17.3); White Blood Count 6.8 T/CUMM (4-12)
[2022-02-06 05:22] LABS: Calcium 8.4 MG/DL (8.5-10.1); Osmolality,Calculated 280.7 MOS/KG (273-304); Potassium 4.2 MMOL/L (3.5-5.1)
[2022-02-06] MEDS ORDERED: TOBRAMYCIN INJ 80 MG in SODIUM CHLORIDE 0.9% 100 ML IV ONE (06:00)
[2022-02-06] MEDS: LACTULOSE 20 GM/30 ML UDCUP PO SCH ×2 (09:58→20:23)
[2022-02-06] MEDS: ENOXAPARIN 60 MG/0.6 ML SYRINGE SUBCUT SCH (09:58)
[2022-02-06] MEDS: POLYETHYLENE GLYCOL POWDER 17 GM PACK PO SCH (09:58)
[2022-02-06] MEDS: ZINC GLUCONATE 50 MG TABLET PO SCH (10:00)
[2022-02-06] MEDS: NEBIVOLOL 5 MG TABLET PO SCH (10:00)
[2022-02-06] MEDS: ATORVASTATIN 40 MG TABLET PO SCH (10:00)
[2022-02-06] MEDS: CHOLECALCIFEROL 1,000 UNIT TABLET PO SCH (10:00)
[2022-02-06] MEDS: ASCORBIC ACID 500 MG TABLET PO SCH ×2 (10:00→20:23)
[2022-02-06] MEDS: INSULIN LISPRO 100 UNIT/ML SUBCUT SCH ×4 (10:01→21:00)
[2022-02-06] MEDS: DAPAGLIFLOZIN 10 MG TABLET PO SCH (10:01)
[2022-02-06] MEDS: INSULIN GLARGINE 100 UNIT/ML SUBCUT SCH (10:01)
[2022-02-06] MEDS: TAMSULOSIN 0.4 MG CAPSULE PO SCH (20:23)
[2022-02-07 06:00] LABS: Eosinophils # 0.1 10*3/uL (0.0-0.87); Eosinophils % 1.9 % (0.00-10.9); Hematocrit 33.3 VOL% (42.0-52.0); Hemoglobin 10.6 GM/DL (14.0-18.0); Immature Granulocytes % 1.1 %; Immature Granulocytes Absolute 0.06 #; Lymphocytes # 0.6 10*3/uL (1.4-4.0); Lymphocytes % 10.7 % (21.2-54.2); Mean Corpuscular HGB Conc 31.8 GM/DL (32-36); Mean Corpuscular Volume 90.2 FL (87-102); Mean Platelet Volume 10.5 FL (9.6-12.0); Monocytes # 0.4 10*3/uL (0.11-0.8); Monocytes % 6.7 % (1.7-12.7); NRBC # 0.02 10*3/uL; Neutrophils % 79.6 % (38.7-73.9); Platelet Count 191 T/CUMM (130-400); Red Blood Count 3.69 MC/CUMM (3.8-5.5); Red Cell Distribution Width 20.2 % (9.3-17.3); White Blood Count 5.7 T/CUMM (4-12)
[2022-02-07] MEDS ORDERED: TOBRAMYCIN INJ 80 MG in SODIUM CHLORIDE 0.9% 100 ML IV ONE (06:00)
[2022-02-07 06:17] LABS: Calcium 8.6 MG/DL (8.5-10.1); Osmolality,Calculated 277.7 MOS/KG (273-304)
[2022-02-07] MEDS: PANTOPRAZOLE 40 MG VIAL IV SCH ×2 (10:00→20:58)
[2022-02-07] MEDS ORDERED: TOBRAMYCIN 80 MG/2 ML VIAL ONE (10:47)
[2022-02-07] MEDS ORDERED: LACTATED RINGERS 1,000 ML IV SCH (11:00)
[2022-02-07] MEDS ORDERED: ONDANSETRON 4 MG/2 ML VIAL ONE (11:12)
[2022-02-07] MEDS ORDERED: SEVOFLURANE 1 UNIT/15 MINUTE INH ONE ×2 (11:12→11:49)
[2022-02-07] MEDS ORDERED: LIDOCAINE 2% 5 ML VIAL ONE (11:12)
[2022-02-07] MEDS ORDERED: DEXAMETHASONE 4 MG/1 ML VIAL ONE (11:12)
[2022-02-07] MEDS ORDERED: propofoL 200 MG/20 ML VIAL IV ONE (11:12)
[2022-02-07] MEDS ORDERED: ePHEDrine 50 MG/ML VIAL ONE (11:34)
[2022-02-07] MEDS: LACTULOSE 20 GM/30 ML UDCUP PO SCH ×2 (11:49→21:02)
[2022-02-07] MEDS: INSULIN LISPRO 100 UNIT/ML SUBCUT SCH ×4 (11:49→21:01)
[2022-02-07] MEDS: DAPAGLIFLOZIN 10 MG TABLET PO SCH (11:49)
[2022-02-07] MEDS: NEBIVOLOL 5 MG TABLET PO SCH (11:49)
[2022-02-07] MEDS: CHOLECALCIFEROL 1,000 UNIT TABLET PO SCH (11:50)
[2022-02-07] MEDS: ZINC GLUCONATE 50 MG TABLET PO SCH (11:50)
[2022-02-07] MEDS: ATORVASTATIN 40 MG TABLET PO SCH (11:50)
[2022-02-07] MEDS: ASCORBIC ACID 500 MG TABLET PO SCH ×2 (11:50→21:02)
[2022-02-07] MEDS: INSULIN GLARGINE 100 UNIT/ML SUBCUT SCH (11:50)
[2022-02-07] MEDS: POLYETHYLENE GLYCOL POWDER 17 GM PACK PO SCH (11:51)
[2022-02-07] MEDS: cefTRIAXone 1,000 MG in SODIUM CHLORIDE 0.9% 100 ML IV SCH (20:58)
[2022-02-07] MEDS: APIXABAN 2.5 MG TABLET PO SCH (21:02)
[2022-02-07] MEDS: TAMSULOSIN 0.4 MG CAPSULE PO SCH (21:02)
[2022-02-08 05:41] LABS: Basophils % 0.2 % (0.0-0.8); Eosinophils % 0.3 % (0.00-10.9); Hematocrit 29.1 VOL% (42.0-52.0); Immature Granulocytes % 0.8 %; Immature Granulocytes Absolute 0.05 #; Lymphocytes # 0.6 10*3/uL (1.4-4.0); Lymphocytes % 9.3 % (21.2-54.2); Mean Corpuscular HGB Conc 30.9 GM/DL (32-36); Mean Corpuscular Volume 92.1 FL (87-102); Mean Platelet Volume 10.4 FL (9.6-12.0); Monocytes # 0.3 10*3/uL (0.11-0.8); Monocytes % 4.9 % (1.7-12.7); Neutrophils % 84.5 % (38.7-73.9); Platelet Count 159 T/CUMM (130-400); Red Blood Count 3.16 MC/CUMM (3.8-5.5); Red Cell Distribution Width 20.2 % (9.3-17.3); White Blood Count 6.6 T/CUMM (4-12)
[2022-02-08 05:57] LABS: Calcium 8.3 MG/DL (8.5-10.1); Osmolality,Calculated 283.5 MOS/KG (273-304); Potassium 4.8 MMOL/L (3.5-5.1)
[2022-02-08] MEDS: INSULIN LISPRO 100 UNIT/ML SUBCUT SCH ×4 (08:18→21:00)
[2022-02-08] MEDS: NEBIVOLOL 5 MG TABLET PO SCH (08:58)
[2022-02-08] MEDS: ZINC GLUCONATE 50 MG TABLET PO SCH (08:58)
[2022-02-08] MEDS: POLYETHYLENE GLYCOL POWDER 17 GM PACK PO SCH (08:58)
[2022-02-08] MEDS: DAPAGLIFLOZIN 10 MG TABLET PO SCH (08:59)
[2022-02-08] MEDS: ATORVASTATIN 40 MG TABLET PO SCH (08:59)
[2022-02-08] MEDS: APIXABAN 2.5 MG TABLET PO SCH ×2 (08:59→21:02)
[2022-02-08] MEDS: ASCORBIC ACID 500 MG TABLET PO SCH ×2 (08:59→21:02)
[2022-02-08] MEDS: INSULIN GLARGINE 100 UNIT/ML SUBCUT SCH (08:59)
[2022-02-08] MEDS: CHOLECALCIFEROL 1,000 UNIT TABLET PO SCH (08:59)
[2022-02-08] MEDS: ASPIRIN EC 81 MG TABLET PO SCH (08:59)
[2022-02-08] MEDS: PANTOPRAZOLE 40 MG VIAL IV SCH ×2 (09:00→21:01)
[2022-02-08] MEDS: LACTULOSE 20 GM/30 ML UDCUP PO SCH ×2 (09:05→21:03)
[2022-02-08] MEDS ORDERED: TUBERCULIN SKIN TEST 0.1 ML SYRINGE INTRADERM ONE (13:29)
[2022-02-08] MEDS: cefTRIAXone 1,000 MG in SODIUM CHLORIDE 0.9% 100 ML IV SCH (21:01)
[2022-02-08] MEDS: TAMSULOSIN 0.4 MG CAPSULE PO SCH (21:01)
[2022-02-09 08:22] VITALS: BP 125/51
[2022-02-09] MEDS: LACTULOSE 20 GM/30 ML UDCUP PO SCH (08:23)
[2022-02-09] MEDS: CHOLECALCIFEROL 1,000 UNIT TABLET PO SCH (08:23)
[2022-02-09] MEDS: INSULIN GLARGINE 100 UNIT/ML SUBCUT SCH (08:24)
[2022-02-09] MEDS: APIXABAN 2.5 MG TABLET PO SCH (08:24)
[2022-02-09] MEDS: NEBIVOLOL 5 MG TABLET PO SCH (08:24)
[2022-02-09] MEDS: INSULIN LISPRO 100 UNIT/ML SUBCUT SCH (08:24)
[2022-02-09] MEDS: ASPIRIN EC 81 MG TABLET PO SCH (08:24)
[2022-02-09] MEDS: ZINC GLUCONATE 50 MG TABLET PO SCH (08:24)
[2022-02-09] MEDS: POLYETHYLENE GLYCOL POWDER 17 GM PACK PO SCH (08:24)
[2022-02-09] MEDS: ATORVASTATIN 40 MG TABLET PO SCH (08:24)
[2022-02-09] MEDS: DAPAGLIFLOZIN 10 MG TABLET PO SCH (08:24)
[2022-02-09] MEDS: ASCORBIC ACID 500 MG TABLET PO SCH (08:24)
[2022-02-09] MEDS: PANTOPRAZOLE 40 MG VIAL IV SCH (08:25)
== END 2022-02-09 10:55 | disposition swing bed (61) | DRG 250 ==
LOC: N.ED 10:57 → N.CC 12:57 → N.TELEN 01-29 18:06
PROVIDERS: ADMIT Internal Medicine; ATTEND Internal Medicine
PROC: CLCCHCL (ICD-10-PCS; 2022-01-21 13:30)